=== PATIENT | female | born 1975 | race Caucasian/White ===

== ENCOUNTER → 2016-05-24 | Outpatient (CLI) | payer OTHER ==
[~2016-05-24] MED LIST: ALPR.25T PO; ARIP5TAB13 PO; ATOR40TA PO; BREX1TAB PO; BUPR150T9 PO; CETI10CA PO; CRAN200C PO; CYCL10TA9 PO; DOCU100C37 PO; FLUO40CA PO; GARL400T13 PO; HYDR-3720 PO; HYDR-3816 PO; IBUP-1773 PO; LIRA0.6P SQ; MELO15TA14 PO; METF500T8 PO; MTF500T PO; NAPR-243 PO; PROP1TAB77 PO; SIME80TA16 PO; TRAM50TA2 PO; ZOLP12.5 PO; [UNRECOGNIZED DRUG - CODE] PO
--- NOTE | 2016-05-24 13:35 | Diagnostic Imaging Report ---
EXAMINATION: Left lower extremity duplex venous ultrasound. TECHNIQUE: DVT protocol. Multiple sonographic images with color Doppler and waveform interrogation were performed of the left lower extremity veins with compression and augmentation maneuvers. INDICATION: Left leg pain and swelling. FINDINGS: The left lower extremity veins from the groin to below the knee veins were examined with normal color-flow, compressibility and waveform demonstrated. The great saphenous vein is patent. IMPRESSION: No evidence of DVT in the left lower extremity. Dictated by: Dictated on workstation # [id number]
== END ==
LOC: RAD 12:35
PROVIDERS: ATTEND Nurse Practitioner Community Health
DX: M79.89 Other specified soft tissue disorders (principal)

== ENCOUNTER 2016-10-05 13:28 | Emergency (ER) | payer OTHER ==
[~2016-10-05] VITALS: Ht 167.6 cm; Wt 113.4 kg
--- NOTE | 2016-10-05 14:37 | ED Back Pain ---
General Chief Complaint: Back Problems Stated Complaint: SHOULDER AND BACK PAIN Source of Information: Patient, Family Exam Limitations: No Limitations (ROSALINO SHAY MD) History of Present Illness Time Seen by Provider: 14:34 Initial Comments This 41 white female presents after sustaining injury yesterday when she apparently fell under her right shoulder while she was carrying her granddaughter. The patient complained of pain primarily over the right proximal humeral area. She denies loss of sensation. She notes that her range of motion is decreased due to pain particularly with abduction. Past medical history significant of present illness includes previous surgical debridement of the right shoulder for degenerative arthritis. (ROSALINO SHAY MD) Allergies and Home Medications Allergies Coded Allergies: ciprofloxacin (Unverified Allergy, Unknown, 08/11/15) oxycodone (Unverified Adverse Reaction, Mild, BP DROPS, 01/29/10) olanzapine (Verified Adverse Reaction, Unknown, 11/03/12) Home Medications Alprazolam 0.25 Mg Tablet, 1 TAB PO QID PRN, (Reported) Atorvastatin Calcium 40 Mg Tablet, 40 MG PO DAILY, (Reported) Brexpiprazole 1 Mg Tablet, 1 MG PO DAILY, (Reported) Bupropion HCl 150 Mg Tablet.er, 75 MG PO DAILY, (Reported) Cetirizine Hcl 10 Mg Capsule, 10 MG PO DAILY, (Reported) Cyclobenzaprine HCl 10 Mg Tablet, 10 MG PO PRN, (Reported) Cyclobenzaprine HCl 10 Mg Tablet, 10 MG PO Q8H, #15 Prescribed by: TORIE EVANS on 01/21/16 2313 Cyclobenzaprine HCl 10 Mg Tablet, 10 MG PO Q8H PRN for SPASMS, #10 Ref 0 Prescribed by: BHAVANA HOYT on 10/05/16 1705 Diclofenac Sodium 75 Mg Tablet.dr, 75 MG PO BID PRN for pain, #20 Ref 0 Prescribed by: BHAVANA HOYT on 10/05/16 1705 Echinacea 500 Mg Capsule, 500 MG PO BID, (Reported) Garlic 400 Mg Tablet.dr, 400 MG PO DAILY, (Reported) Hydrocodone/Acetaminophen 1 Each Tablet, 1-2 EA PO Q6H PRN for PAIN, #50 Prescribed by: MICKI PERALTA on 08/11/15 0938 Liraglutide 0.6 Mg/0.1 Ml Pen.injctr, 1.8 MG SQ DAILY, (Reported) Meloxicam 15 Mg Tablet, 15 MG PO DAILY, #10 Prescribed by: TORIE EVANS on 01/21/16 2313 Metformin HCl 500 Mg Tab.er.24h, 1,000 MG PO HS, (Reported) Tramadol HCl 50 Mg Tablet, 50 MG PO Q8H PRN for PAIN, #10 Ref 0 Supervising Physician: Roxana Prescribed by: MELE KRAMER on 01/20/16 2331 Zolpidem Tartrate 12.5 Mg Tab.mphase, 12.5 MG PO HS, (Reported) Constitutional: No chills, No fever EENTM: No vision loss Respiratory: No cough Cardiovascular: No chest pain Gastrointestinal: No abdominal pain Genitourinary: No frequency Musculoskeletal: No back pain, joint pain (right shoulder), neck pain (patient has mild tenderness around the paracervical region.) Skin: No rash, other (there is no abrasion or acute ecchymosis on the patient' s exam) Psychiatric/Neurological: No Symptoms Reported (ROSALINO SHAY MD) Past Cunobrs-Kkoiio-Yhwles Hx Patient Social History Former Smoker, Quit: Aug 01, 2001 Recent Foreign Travel: No Contact w/Someone Who Travel: No Recent Hopitalizations: No (ROSALINO SHAY MD) Immunizations Up To Date Date of Pneumonia Vaccine: Feb 11, 2007 (ROSALINO SHAY MD) Seasonal Allergies Seasonal Allergies: No (ROSALINO SHAY MD) Surgeries Surgeries: Gallbladder, Hysterectomy (ROSALINO SHAY MD) Respiratory Respiratory Disorders: Sleep Apnea (ROSALINO SHAY MD) Cardiovascular Cardiac Disorders: High Cholesterol (ROSALINO SHAY MD) Neurological Neurological Disorders: Headaches /Migraines (ROSALINO SHAY MD) Reproductive System Hx Reproductive Disorders: Yes (DUB) Sexually Transmitted Disease: No HIV/AIDS: No Female Reproductive Disorders: Menstrual Problems, Polycystic Ovarian Dis UPHOLSTERY AUTO TRIMMER History: Hysterectomy (ROSALINO SHAY MD) Genitourinary Genitourinary Disorders: UTI-Chronic (ROSALINO SHAY MD) Gastrointestinal Gastrointestinal Disorders: Chronic Diarrhea (ROSALINO SHAY MD) Musculoskeletal Musculoskeletal Disorders: Arthritis, Chronic Back Pain (ROSALINO SHAY MD) Endocrine Endocrine Disorders: Diabetes, Non-Insulin dep (ROSALINO SHAY MD) HEENT HEENT Disorders: Chronic Ear Infection Loss of Vision: Bilateral Hearing Impairment: Denies (ROSALINO SHAY MD) Psychosocial Behavioral Health Disorders: Sleep Difficulties, Anxiety, Depression (ROSALINO SHAY MD) Blood Transfusions Adverse Reaction to a Blood Tr: No (ROSALINO SHAY MD) Reviewed Nursing Assessment Reviewed/Agree w Nursing PMH: Yes (ROSALINO SHAY MD) Physical Exam Vital Signs Vital Sign - Last 12Hours 10/05/16 13:45 Temp 98.1 Pulse 70 Resp 16 B/P (MAP) 185/99 Pulse Ox 98 O2 Delivery Room Air (BHAVANA HOYT) Vital Signs Capillary Refill : (ROSALINO SHAY MD) General Appearance: WD/WN, Mild Distress HEENT: Normal ENT Inspection Neck: Normal Inspection Cardiovascular: Regular Rate, Rhythm, No Edema Respiratory: Lungs Clear, Normal Breath Sounds Gastrointestinal: Normal Bowel Sounds Back: Normal Inspection Extremity: Normal Capillary Refill, Other (there is limited range of motion of the right shoulder. There is tenderness palpation over the proximal) Neurologic/Psychiatric: Oriented x3, No Motor/Sensory Deficits, Normal Mood/ Affect Skin: Normal Color, Warm/Dry (ROSALINO SHAY MD) Progress/Results/Core Measures Results/Orders My Orders Orders - BHAVANA HOYT Shoulder, Right, 3 Views (10/05/16 15:26) Ct Thoracic/Lumbar Spine Wo (10/05/16 15:26) Ketorolac Injection (Toradol Injection) (10/05/16 15:26) Tramadol Tablet (Ultram Tablet) (10/05/16 17:02) (BHAVANA HOYT) Vital Signs/I&O Vital Sign - Last 12Hours 10/05/16 13:45 Temp 98.1 Pulse 70 Resp 16 B/P (MAP) 185/99 Pulse Ox 98 O2 Delivery Room Air (BHAVANA HOYT) Diagnostic Imaging Diagonstic Imaging: Xray Plain Films/CT/US/NM/MRI: other (rt shoulder) Comments FINDINGS: Three views of the right shoulder demonstrate normal ossification. No fracture or dislocation is present. IMPRESSION: Normal right shoulder. Dictated by: Dictated on workstation # [id number] Reviewed: Reviewed by Me (radiology report reviewed by me) Diagonstic Imaging: CT Plain Films/CT/US/NM/MRI: other (thoracic and lumbar spine) Comments FINDINGS: Manager Night views and reformats demonstrate normal anatomic alignment of the thoracic spine. The vertebral bodies are of normal height and contour. There is no evidence of acute fracture or dislocation. No acute compression fracture is seen. No large prevertebral paraspinal soft tissue masses are seen. Mild multilevel degenerative changes are noted and consist of intervertebral disc height loss with anterior and posterior disc osteophyte complex formations , as well as multilevel facet arthropathy. No bony fragments are seen in the central canal. No areas of bony central canal or foraminal stenosis are seen. Limited views of the lungs demonstrate no focal lesions. Faint nonobstructive renal calculi are noted, bilaterally. IMPRESSION: 1. No evidence of fracture or dislocation of the thoracic or lumbar spine. Please note that CT scan is a less sensitive modality to evaluate epidural hematoma or cord injury. If this is a clinical concern further evaluation with MRI of the spine could be obtained. 2. Faint nonobstructive bilateral renal calculi. Dictated on workstation # [id number] Reviewed: Reviewed by Me (radiology report reviewed by me) (BHAVANA HOYT) Departure Communication Progress Notes Patient seen and evaluated with Dr. Shay. Patient is also complaining of lumbar and thoracic pain. Denies numbness or tingling. Patient does show to be tender over the thoracic and lumbar spine without step-off or deformity. We will add CT of the Tand L-spine to the x-ray of the right shoulder. 1653 diagnostic findings discussed with the patient. Patient complains of continued pain and rates it at a 4/10. Patient was given 1 dose of tramadol in the emergency department prior to discharge. Discharge to home with follow-up as an outpatient with her PCP if needed. (BHAVANA HOYT) Impression Impression: Primary Impression: Back strain Qualified Codes: S39.012A - Strain of muscle, fascia and tendon of lower back , initial encounter Additional Impression: Sprain of right shoulder Qualified Codes: S43.401A - Unspecified sprain of right shoulder joint, initial encounter Disposition: HOME, SELF-CARE Condition: Improved Departure-Patient Inst. Decision time for Depature: 16:53 (BHAVANA HOYT) Referrals: SULY LAYNE DO (PCP) Primary Care Physician ISABEL SOLORIO (Family) Primary Care Physician Patient Instructions: Muscle Strain (DC) Add. Discharge Instructions: All discharge instructions reviewed with patient and/or family. Voiced understanding. Medications as instructed. Tylenol Extra Strength over-the- counter as directed for pain. Ice pack for 20 minute intervals as needed for pain. After 2-3 days he may begin using heating pad or pack. Avoid heavy lifting for 3-5 days, increase activity as tolerated. Follow-up with your primary care physician if no improvement in symptoms in 7-10 days. Return to the emergency department for worsened pain, numbness, weakness, bowel incontinence, bladder incontinence, or any other concerns. Scripts Diclofenac Sodium (Diclofenac Sodium) 75 Mg Tablet.dr 75 MG PO BID Y for pain, #20 TAB 0 Refills Prov: BHAVANA HOYT 10/05/16 Cyclobenzaprine HCl (Cyclobenzaprine HCl) 10 Mg Tablet 10 MG PO Q8H Y for SPASMS, #10 TAB 0 Refills Prov: BHAVANA HOYT 10/05/16 ROSALINO SHAY MD Oct 05, 2016 14:37 BHAVANA HOYT Oct 05, 2016 16:56
[2016-10-05] MEDS: KETOROLAC 60 MG/2 ML VIAL IM STA (15:58)
--- NOTE | 2016-10-05 16:38 | Diagnostic Imaging Report ---
INDICATION: Fall. Back pain. COMPARISON: None. TECHNIQUE: Non contrast-enhanced thin section helical images of the thoracic and lumbar spine were obtained. Sagittal and coronal reformats were also reviewed. FINDINGS: Forming Machine Operator views and reformats demonstrate normal anatomic alignment of the thoracic spine. The vertebral bodies are of normal height and contour. There is no evidence of acute fracture or dislocation. No acute compression fracture is seen. No large prevertebral paraspinal soft tissue masses are seen. Mild multilevel degenerative changes are noted and consist of intervertebral disc height loss with anterior and posterior disc osteophyte complex formations, as well as multilevel facet arthropathy. No bony fragments are seen in the central canal. No areas of bony central canal or foraminal stenosis are seen. Limited views of the lungs demonstrate no focal lesions. Faint nonobstructive renal calculi are noted, bilaterally. IMPRESSION: 1. No evidence of fracture or dislocation of the thoracic or lumbar spine. Please note that CT scan is a less sensitive modality to evaluate epidural hematoma or cord injury. If this is a clinical concern further evaluation with MRI of the spine could be obtained. 2. Faint nonobstructive bilateral renal calculi. Dictated by: Dictated on workstation # [id number]
--- NOTE | 2016-10-05 16:46 | Diagnostic Imaging Report ---
INDICATION: Fell yesterday, now has right shoulder pain. FINDINGS: Three views of the right shoulder demonstrate normal ossification. No fracture or dislocation is present. IMPRESSION: Normal right shoulder. Dictated by: Dictated on workstation # [id number]
[2016-10-05] MEDS ORDERED: DICL75TA2 PO ×2 (16:55→17:05)
[2016-10-05] MEDS ORDERED: CYCL10TA9 PO ×2 (16:55→17:05)
[2016-10-05 17:12] VITALS: BP 134/78
== END 2016-10-05 17:13 | disposition home or self-care (01) ==
LOC: EDUNIT# 13:28 → ER 13:33
DX: S39.012A Strain of muscle, fascia and tendon of lower back, initial encounter (principal); S43.401A Unspecified sprain of right shoulder joint, initial encounter; G47.30 Sleep apnea, unspecified; E78.00 Pure hypercholesterolemia, unspecified; G43.909 Migraine, unspecified, not intractable, without status migrainosus; E11.9 Type 2 diabetes mellitus without complications; F41.9 Anxiety disorder, unspecified; F32.9 Major depressive disorder, single episode, unspecified; M19.90 Unspecified osteoarthritis, unspecified site; Z87.448 Personal history of other diseases of urinary system; Z87.440 Personal history of urinary (tract) infections; Z87.891 Personal history of nicotine dependence; Z90.710 Acquired absence of both cervix and uterus; W18.30XA Fall on same level, unspecified, initial encounter
CPT/HCPCS: 72128; 72131; 73030; 99284

== ENCOUNTER → 2017-02-12 | Outpatient (CLI) | payer OTHER ==
[~2017-02-12] MED LIST changes: +DICL75TA2 PO
--- NOTE | 2017-02-12 14:15 | Diagnostic Imaging Report ---
INDICATION: Screening. The current study was also evaluated with a Computer Aided Detection (CAD) system. Comparison is made with prior examination from 11/23/15 and 04/14/15. FINDINGS: There is a moderate amount of residual fibroglandular tissue bilaterally. There is no dominant mass, spiculated lesion or suspicious calcification identified. Skin, nipples and axillae are unremarkable. IMPRESSION: ACR BI-RADS Category 1: Negative. Result letter will be mailed to the patient. Note: At least 10% of breast cancer is not imaged by mammography. Dictated by: Dictated on workstation # [id number]
== END ==
LOC: RAD 11:01
PROVIDERS: ATTEND Nurse Practitioner Family
DX: Z12.31 Encounter for screening mammogram for malignant neoplasm of breast (principal)
CPT/HCPCS: 77067

== ENCOUNTER → 2020-03-21 | Outpatient (CLI) | payer BC ==
[~2020-03-21] MED LIST changes: +HYDR-34 PO; -HYDR-3816 PO; +METF-865 PO; -TRAM50TA2 PO; +TRM50T PO
--- NOTE | 2020-03-21 10:34 | Diagnostic Imaging Report ---
INDICATION: Routine screening. Comparison is made with prior mammogram 02/12/2017 and 04/14/2015. 2-D and 3-D bilateral screening mammography was performed with CAD. Both breast are heterogeneously dense, limiting the sensitivity of mammography. No mass or malignant appearing microcalcifications are seen. Axillae are unremarkable. IMPRESSION: BI-RADS Category 1 No mammographic features suspicious for malignancy are identified. ACR BI-RADS Category 1: Negative. Result letter will be mailed to the patient. Note: At least 10% of breast cancer is not imaged by mammography. Dictated by: Dictated on workstation # [id number]
== END ==
LOC: RAD 08:57
PROVIDERS: ATTEND Nurse Practitioner Community Health
DX: Z12.31 Encounter for screening mammogram for malignant neoplasm of breast (principal)
CPT/HCPCS: 77063; 77067

== ENCOUNTER 2021-11-27 14:47 | Outpatient (CLI) | payer BC ==
[~2021-11-27] VITALS: Ht 170.2 cm; Wt 120.4 kg
[~2021-11-27 14:47] MED LIST changes: -CEFU250T80 PO; -FISH OIL; -HYOS-20 PO; -KETO10TA PO; -SEMA1PEN3 SQ; -TMSL.4C PO
[2021-11-27] MEDS ORDERED: FISH OIL (15:25)
[2021-11-27] MEDS ORDERED: SEMA1PEN3 SQ (15:25)
[2021-11-27] MEDS ORDERED: CEFU250T80 PO (15:26)
[2021-11-27] MEDS ORDERED: HYOS-20 PO (15:31)
[2021-11-28] MEDS ORDERED: KETO10TA PO (10:47)
[2021-11-28] MEDS ORDERED: TMSL.4C PO (10:47)
== END 2021-11-27 15:48 | disposition home or self-care (01) ==
LOC: PREOP 14:47
PROVIDERS: ATTEND Urology
DX: Z01.818 Encounter for other preprocedural examination (principal)

== ENCOUNTER → 2021-11-27 | Outpatient (CLI) | payer BC ==
[~2021-11-27] MED LIST changes: +CEFU250T80 PO; +CYCL10TA25 PO; -CYCL10TA9 PO; +FISH OIL; +HYOS-20 PO; +KETO10TA PO; +SEMA1PEN3 SQ; +TMSL.4C PO
--- NOTE | 2021-11-27 14:53 | Diagnostic Imaging Report ---
Indication: Ureteral stone Findings: A right-sided double-J stent is placed projecting in good alignment. Along the course of the stent, no radiopaque stone is found. No appreciable calculus along the renal shadows. Impression: Right double-J placed, no radiopaque urolithiasis is identified. Dictated by: Dictated on workstation # [id number]
== END ==
LOC: RAD
PROVIDERS: ATTEND Urology
DX: N20.1 Calculus of ureter (principal); Z96.0 Presence of urogenital implants
CPT/HCPCS: 74018

== ENCOUNTER 2021-11-28 06:31 | Day surgery (SDC) | payer BC ==
[~2021-11-28] VITALS: Ht 170.2 cm; Wt 120.4 kg
[2021-11-28] VITALS (10 sets, daily range): BP systolic 119–153; BP diastolic 65–93
[~2021-11-28 06:31] MED LIST changes: +CEFU250T80 PO; +FISH OIL; +HYOS-20 PO; +SEMA1PEN3 SQ
--- NOTE | 2021-11-28 07:04 | Progress Note-Pre Operative ---
Pre-Operative Progress Note Date of Available H&P: Nov 28, 2021 Date H&P Reviewed: Nov 28, 2021 Time H&P Reviewed: 07:03 Changes from last HP NONE Pre-Operative Diagnosis: RT PROXIMAL URETERAL STONE CASSIA FUNEZ MD Nov 28, 2021 07:03
[2021-11-28] MEDS ORDERED: cefTRIAXone 1 GM PRE-MIX 50 ML IV ONE (07:15)
[2021-11-28] MEDS ORDERED: LACTATED RINGERS 1,000 ML IV PRN (08:00)
--- NOTE | 2021-11-28 08:07 | Diagnostic Imaging Report ---
ABDOMEN/KUB 1VIEW INDICATION: Status post right-sided lithotripsy. COMPARISON: 11/27/2021 TECHNIQUE: AP view of the abdomen. FINDINGS: Stable right-sided double-J nephroureteral stent. No urinary tract calculi are appreciated along the course of the stent. Nonobstructive bowel gas pattern. Stable cholecystectomy clips. Stable regional skeleton. IMPRESSION: Stable right-sided nephroureteral stent. No radiographic apparent urinary tract calculi. Dictated by: Dictated on workstation # [id number]
[2021-11-28] MEDS ORDERED: proPOfol 200 MG/20 ML (DIPRIVAN) VIAL IV ONE (09:01)
[2021-11-28] MEDS ORDERED: NEOSTIGMINE (BLOXIVERZ ) 1 MG/1ML 10 ML VIAL ONE (09:01)
[2021-11-28] MEDS ORDERED: MIDAZOLAM 2 MG/2 ML (VERSED) VIAL ONE (09:01)
[2021-11-28] MEDS ORDERED: fentaNYL INJ 100 MCG/2 ML AMP ONE (09:01)
[2021-11-28] MEDS ORDERED: ONDANSETRON 4 MG/2 ML (SDV) Z0FRAN ONE (09:01)
[2021-11-28] MEDS ORDERED: ROCURONIUM 10 MG/ML 5 ML SYRINGE IV ONE (09:01)
[2021-11-28] MEDS ORDERED: LIDOCAINE PF 2% 5 ML (XYLOCAINE) VIAL ONE (09:01)
[2021-11-28] MEDS ORDERED: GLYCOPYRROLATE 0.2 MG/ML (ROBINUL) 2 ML VIAL ONE (09:01)
[2021-11-28] MEDS ORDERED: SEVOFLURANE (ULTANE) 15 ML INHAL SOLN ONE (09:38)
--- NOTE | 2021-11-28 09:52 | Progress Note-Post Operative ---
Post-Operative Progess Note Surgeon (s)/News Technical Director (s) Surgeon CASSIA FUNEZ MD News Technical Director: NONE Pre-Operative Diagnosis RT PROXIMAL URETERAL STONE Post-Operative Diagnosis RT DISTAL URETERAL STONE AND VAGINAL PROLAPSE Procedure & Operative Findings Date of Procedure 11/28/21 Procedure Performed/Findings CYSTOSCOPY, REMOVAL OR RT STENT AND RT URETEROSCOPY WITH STONE LITHOTRIPSY Anesthesia Type GENERAL Estimated Blood Loss Estimated blood loss (mL): NONE Specimens/Packing Specimens Removed NONE TO PATH Packing: NONE CASSIA FUNEZ MD Nov 28, 2021 09:52
--- NOTE | 2021-11-28 09:54 | Discharge Inst-Urology ---
Discharge Inst-Urology Reconcile Patient Problems Problems Reviewed?: Yes Final Diagnosis RT DISTAL URETERAL STONE Patient Instructions/Follow Up Plan/Assessment/Instructions Please make appointment to been seen in office in [address] home Strain all urine and save stone fragments and bring to office appointment Finish home ABX Increase oral fluids for 48 hours and then as needed. Diet and Activity as tolerated. If questions or concerns contact your physician Or seek help at emergency department. CASSIA FUNEZ MD Nov 28, 2021 09:54
[2021-11-28] MEDS ORDERED: morphine INJ 10 MG/ML 1ML (SYR OR VIAL) IVP ONE (10:00)
[2021-11-28] MEDS ORDERED: ONDANSETRON 4 MG/2 ML (SDV) Z0FRAN IVP PRN (10:00)
[2021-11-28] MEDS ORDERED: KETOROLAC 30 MG/ML VIAL ONE (10:03)
[2021-11-28] MEDS ORDERED: FUROSEMIDE 40 MG/4 ML INJ (LASIX) ONE (10:03)
--- NOTE | 2021-11-28 10:10 | Anesthesia-General Post-Op ---
General Patient Condition Mental Status/LOC: Same as Preop Cardiovascular: Satisfactory Nausea/Vomiting: Absent Respiratory: Satisfactory Pain: Controlled Complications: Absent Post Op Complications Complications None Follow Up Care/Instructions Patient Instructions None needed. Anesthesia/Patient Condition Patient Condition Patient is awake in PACU and doing well, no complaints, stable vital signs, no apparent adverse anesthesia problems. No complications reported per nursing. DUNG FERRARO DO Nov 28, 2021 10:10
[2021-11-28] MEDS ORDERED: TMSL.4C PO (10:47)
[2021-11-28] MEDS ORDERED: KETO10TA PO (10:47)
--- NOTE | 2021-11-28 11:22 | Diagnostic Imaging Report ---
REASON FOR EXAM: Right ureteral stent removal. Lithotripsy. COMPARISON: Abdominal radiograph performed earlier the same date. TECHNIQUE: 2 views of the abdomen FINDINGS: There has been interval removal of the right-sided double-J ureteral stent. No calcifications are seen along the course of the right ureter. No bowel obstruction. IMPRESSION: Interval removal of the double-J ureteral stent on the right. No evidence of calculi along the course of the right ureter. Dictated by: Dictated on workstation # [id number]
--- NOTE | 2021-11-28 14:42 | OPERATIVE REPORT ---
DATE OF SERVICE: 11/28/2021 PREOPERATIVE DIAGNOSIS: Right distal ureteral stone. POSTOPERATIVE DIAGNOSES: Right distal ureteral stone and vaginal prolapse. OPERATION PERFORMED: Cystoscopy, removal of right ureteral stent with right ureteroscopy and stone lithotripsy. SURGEON: Jordan Funez MD ANESTHESIA: General. COMPLICATIONS: None. DESCRIPTION OF PROCEDURE: Under satisfactory general anesthesia, the patient in lithotomy position, genitalia were prepped and draped in the usual sterile fashion. Noted a vaginal prolapse. Cystoscope was introduced in the bladder. The distal end of the stent was visualized and removed using grasping forceps. I went back again with a 6.9-[place]or[place] semi-rigid ureteroscope into the ureter all the way up to the stone, good size. It was fragmented completely first at the level of 5 power and then 12 to finish it up using the 6.9 [place] semi-rigid ureteroscope and the lithoclast fiber. I removed the ureteroscope, reinserted the cystoscope. There was no more fragments visualized on fluoroscopy. I emptied, the scope. The patient tolerated the procedure and anesthesia well and was sent to recovery room in stable condition after receiving 40 mg of Lasix and 30 mg of Toradol IV. She tolerated the procedure and anesthesia well. CC: Dr. Finney - requested, unable to deliver. Job ID: [id number] DocumentID: [id number] Dictated Date: 11/28/2021 09:58:34 Hand Sign Writer Date: 11/28/2021 14:42:00 Dictated By: JORDAN FUNEZ MD
== END 2021-11-28 12:00 | disposition home or self-care (01) ==
LOC: SDC 06:31
PROVIDERS: ATTEND Urology
DX: N20.1 Calculus of ureter (principal); N81.10 Cystocele, unspecified; E11.9 Type 2 diabetes mellitus without complications; G47.33 Obstructive sleep apnea (adult) (pediatric); E78.5 Hyperlipidemia, unspecified; E66.9 Obesity, unspecified; Z68.41 Body mass index [BMI] 40.0-44.9, adult; Z87.891 Personal history of nicotine dependence; Z79.85 Long-term (current) use of injectable non-insulin antidiabetic drugs; Z28.310 Unvaccinated for COVID-19
CPT/HCPCS: 74018; 76000; 82947; 84703; 87081

== ENCOUNTER → 2022-06-29 | Outpatient (CLI) | payer BC ==
[~2022-06-29] MED LIST changes: +KETO10TA PO; +TMSL.4C PO
--- NOTE | 2022-06-29 12:40 | Diagnostic Imaging Report ---
INDICATION: Bilateral breast pain COMPARISON: 03/21/2020 and 02/12/2017 There is mild breast parenchymal density, bilaterally. No dominant mass or suspicious calcifications identified. Overall, no adverse change. IMPRESSION: Category 1, negative mammogram. Physical examination and annual mammographic followup are recommended. ACR BI-RADS Category 1: Negative. Result letter will be mailed to the patient. Note: At least 10% of breast cancer is not imaged by mammography. Dictated by: Dictated on workstation # [id number]
== END ==
LOC: RAD 12:06
PROVIDERS: ATTEND Nurse Practitioner Family
DX: N64.4 Mastodynia (principal)
CPT/HCPCS: 77066; G0279; 77062

== ENCOUNTER → 2022-10-22 | Outpatient (CLI) | payer BC | LOC: CARD 12:54 | PROVIDERS: ATTEND Internal Medicine Cardiovascular Disease | DX: I51.7 Cardiomegaly (principal) | CPT/HCPCS: 93306 ==

== ENCOUNTER → 2022-10-30 | Outpatient (CLI) | payer BC ==
--- NOTE | 2022-10-30 18:48 | Diagnostic Imaging Report ---
INDICATION: RT ELBOW PAIN AND SWELLING TECHNIQUE: 3 views of the right elbow CORRELATION STUDY: None FINDINGS: There is some generalized soft tissue swelling. No abnormal joint effusion. There is a small spur-like density of the radial head. Osseous structures are intact. There is no acute fracture. Alignment anatomic. IMPRESSION: 1. Negative for acute bony abnormality of the elbow. Dictated by: Dictated on workstation # [id number]
== END ==
LOC: RAD 10:30
PROVIDERS: ATTEND Nurse Practitioner Family
DX: R22.31 Localized swelling, mass and lump, right upper limb (principal)
CPT/HCPCS: 73080